=== PATIENT | female | born 1985 | race Caucasian/White ===

== ENCOUNTER → 2017-01-16 | Outpatient (CLI) | payer BC ==
[~2017-01-16] MED LIST: ALEVE220 M1 PO; CLARITIN10 MG PO; PROVENTIL OR V6.7 GM INH; TYLENOL EXTRA500 MG PO
== END | disposition disaster alternative care site (69) ==
LOC: GPOC 01-11 11:00 → GRAD 14:12 → GPOC 15:00
DX: E04.1 Nontoxic single thyroid nodule (principal)